=== PATIENT | male | born 1940 | race Caucasian/White ===

== ENCOUNTER 2021-05-13 07:09 | Day surgery (SDC) | payer MEDICARE, BC ==
[2021-05-13] VITALS (13 sets, daily range): BP systolic 125–160; BP diastolic 76–94
[~2021-05-13] VITALS: Ht 182.9 cm; Wt 111.8 kg
[2021-05-13] MEDS ORDERED: nitroGLYCERIN 0.4mg SUBLingual tab SL PRN (07:40)
[2021-05-13] MEDS ORDERED: diphenhydrAMINE 25mg capsule PO PRN (07:40)
[2021-05-13] MEDS ORDERED: LORazepam 0.5 MG tablet PO PRN (07:40)
[2021-05-13] MEDS ORDERED: normal saline 1,000 ML IV SCH (07:40)
[2021-05-13] MEDS ORDERED: BENA40TA73 PO (08:05)
[2021-05-13] MEDS ORDERED: finasteride PO (08:05)
[2021-05-13] MEDS ORDERED: MULT-1085 PO (08:05)
[2021-05-13] MEDS ORDERED: ESCI20TA39 PO (08:05)
[2021-05-13] MEDS ORDERED: ROSU20TA2 PO (08:05)
[2021-05-13 08:16] LABS: BASOPHILS % (AUTO) 0.7 % (0-1); EOSINOPHILS # (AUTO) 0.1 X10'3 (0-0.9); EOSINOPHILS % (AUTO) 1.8 % (0-6); HEMATOCRIT 43.5 % (42.0-52.0); HEMOGLOBIN 14.9 g/dl (14.0-17.9); LYMPHOCYTES # (AUTO) 1.7 X10'3 (1.1-4.8); LYMPHOCYTES % (AUTO) 24.7 % (21-51); MEAN CORPUSCULAR HEMOGLOBIN 31.7 PG (27.0-31.0); MEAN CORPUSCULAR HGB CONC 34.2 g/dL (33.0-36.5); MEAN CORPUSCULAR VOLUME 92.9 FL (78-98); MEAN PLATELET VOLUME 7.5 FL (7.4-10.4); MONOCYTES # (AUTO) 0.8 X10'3 (0-0.9); MONOCYTES % (AUTO) 11.9 % (2-12); NEUTROPHILS # (AUTO) 4.1 X10'3 (1.8-7.7); NEUTROPHILS % (AUTO) 60.9 % (42-75); PLATELET COUNT 213 X10'3 (140-440); RED BLOOD COUNT 4.68 X10'6 (4.70-6.10); RED CELL DISTRIBUTION WIDTH 14.1 % (11.5-14.5); WHITE BLOOD COUNT 6.7 X10'3 (4.5-11.0)
[2021-05-13 08:19] LABS: PARTIAL THROMBOPLASTIN TIME 27 SECONDS (22-32)
[2021-05-13 09:07] LABS: ALBUMIN 3.8 G/DL (3.4-5.0); ANION GAP 12 (8-16); BLOOD UREA NITROGEN 11 MG/DL (7-18); BUN/CREATININE RATIO 10.6 (5.4-32.0); CALCIUM 8.6 MG/DL (8.5-10.1); CHLORIDE 106 MMOL/L (99-107); CREATININE 1.04 MG/DL (0.60-1.10); GLUCOSE 92 MG/DL (70-104); POTASSIUM 3.6 MMOL/L (3.5-5.1); SODIUM 143 MMOL/L (135-145); TOTAL CARBON DIOXIDE 24.9 MMOL/L (24-32); eGFR 69 ML/MIN
[2021-05-13] MEDS ORDERED: iohexol 350MG/ML 100ml bottle IV ONE (10:32)
[2021-05-13] MEDS ORDERED: LIDOcaine 1% (10mg/ml)w/preservative injection 20ml MDV ONE (10:32)
[2021-05-13] MEDS ORDERED: iohexol 350 MG/ML 50ML vial IV ONE ×2 (10:32→11:19)
[2021-05-13] MEDS ORDERED: midazolam 1 mg/ML 2ml injection ONE (10:32)
[2021-05-13] MEDS ORDERED: fentaNYL/PF 50MCG/1 ML 2ML syringe ONE (10:32)
[2021-05-13] MEDS ORDERED: nitroGLYCERIN-Tridil 50MG/D5W 250 ML IV ONE (11:16)
[2021-05-13] MEDS ORDERED: ondansetron/PF 4mg/2ml inj IV PRN (12:20)
[2021-05-13] MEDS ORDERED: HYDROcodone/acetaminophen 10/325mg tab PO PRN (12:25)
[2021-05-13] MEDS ORDERED: OXAZEpam 15mg capsule PO PRN (12:25)
[2021-05-13] MEDS ORDERED: HYDROcodone/acetaminophen 5mg/325mg tablet PO PRN (12:25)
[2021-05-13] MEDS ORDERED: proCHLORperazine 10 MG/2 ml inj IV PRN (12:25)
== END 2021-05-13 18:00 | disposition home or self-care (01) ==
LOC: EDBD 07:09 → SSTAY O 07:09
PROVIDERS: ATTEND Internal Medicine Cardiovascular Disease
DX: R94.39 Abnormal result of other cardiovascular function study (principal); I25.10 Atherosclerotic heart disease of native coronary artery without angina pectoris; I35.0 Nonrheumatic aortic (valve) stenosis; E78.5 Hyperlipidemia, unspecified; M19.90 Unspecified osteoarthritis, unspecified site; G62.9 Polyneuropathy, unspecified; I10 Essential (primary) hypertension; J44.9 Chronic obstructive pulmonary disease, unspecified; Z79.01 Long term (current) use of anticoagulants; Z72.89 Other problems related to lifestyle; Z87.891 Personal history of nicotine dependence; Z79.899 Other long term (current) drug therapy
CPT/HCPCS: 36415; 71046; 80048; 85025; 85610; 85730; 93005; 93458; 93567; 99152; 99153; C1760; C1769; J1644; J2001; J2250; J3010; J7030; Q0163; Q9967; A4620; A4663; A6258; J3490

== ENCOUNTER 2021-07-02 10:40 | Day surgery (SDC) | payer MEDICARE, BC ==
[2021-06-24 15:58] LABS: BASOPHILS % (AUTO) 0.5 % (0-1); EOSINOPHILS # (AUTO) 0.1 X10'3 (0-0.9); EOSINOPHILS % (AUTO) 1.3 % (0-6); LYMPHOCYTES # (AUTO) 2.3 X10'3 (1.1-4.8); MEAN CORPUSCULAR HEMOGLOBIN 31.5 PG (27.0-31.0); MEAN CORPUSCULAR VOLUME 92.6 FL (78-98); MEAN PLATELET VOLUME 7.5 FL (7.4-10.4); MONOCYTES # (AUTO) 0.7 X10'3 (0-0.9); MONOCYTES % (AUTO) 10.7 % (2-12); NEUTROPHILS # (AUTO) 3.8 X10'3 (1.8-7.7); NEUTROPHILS % (AUTO) 54.5 % (42-75); PRE OP HEMATOCRIT 42.1 % (42.0-52.0); PRE OP HEMOGLOBIN 14.3 g/dL (14.0-17.9); PRE OP PLATELET COUNT 214 X10'3 (140-440); RED BLOOD COUNT 4.54 X10'6 (4.70-6.10); RED CELL DISTRIBUTION WIDTH 13.5 % (11.5-14.5)
[2021-06-24 16:05] LABS: PRE OP INR 1.1 INR; PRE OP PROTIME 11.1 SECONDS (9.0-12.0)
[2021-06-24 16:07] LABS: ALBUMIN 3.6 G/DL (3.4-5.0); ALKALINE PHOSPHATASE 65 IU/L (46-116); BLOOD UREA NITROGEN 16 MG/DL (7-18); BUN/CREATININE RATIO 15.5 (5.4-32.0); CALCIUM 8.1 MG/DL (8.5-10.1); CHLORIDE 106 MMOL/L (99-107); CREATININE 1.03 MG/DL (0.60-1.10); PRE OP ALT 22 U/L (30-65); PRE OP ANION GAP 4 (8-16); PRE OP AST 21 U/L (10-37); PRE OP BILIRUB, TOTAL 1.1 MG/DL (0.0-1.0); PRE OP GLUCOSE 96 MG/DL (70-104); PRE OP POTASSIUM 3.8 MMOL/L (3.4-5.1); PRE OP SODIUM 141 MMOL/L (135-145); TOTAL CARBON DIOXIDE 31.3 MMOL/L (24-32); TOTAL PROTEIN 7.1 G/DL (6.4-8.2); eGFR 69 ML/MIN
[~2021-07-02] VITALS: Ht 182.9 cm; Wt 110.0 kg
[2021-07-02] VITALS (19 sets, daily range): BP systolic 93–160; BP diastolic 54–104
[~2021-07-02 10:40] MED LIST: BENA40TA73 PO; ESCI20TA39 PO; FINA5TAB11 PO; ROSU20TA2 PO; cefazolin/dext.iso 2gm/50ml IV ONE; famotidine 20mg tablet PO ONE; tranexamic acid inj. 1,000 MG in 0.7% saline 100 ML PMX IV ONE; vancomycin 1,500 MG in NS 300ml IV soln IV ONE
[2021-07-02] MEDS: ringers solution, lacted 1,000 ML IV SCH ×3 (11:54→19:17)
[2021-07-02] MEDS ORDERED: ketorolac trometh. 30mg/ml inj. ONE (13:17)
[2021-07-02] MEDS ORDERED: vancomycin 1,000mg inj ONE (13:17)
[2021-07-02] MEDS ORDERED: cloNIDine hcl/PF 100mcg/ml inj ONE (13:17)
[2021-07-02] MEDS ORDERED: ROPIVAcaine 0.5% (5mg/ml) 30ml vial ONE (13:18)
[2021-07-02] MEDS ORDERED: tetracaine 1% (10mg/ml) pres. free inj. ONE (13:19)
[2021-07-02] MEDS ORDERED: MIDAZolam 1 MG/ML 5ML VIAL ONE (13:20)
[2021-07-02] MEDS ORDERED: fentaNYL/PF 50MCG/1 ML 2ML syringe ONE (13:20)
[2021-07-02] MEDS ORDERED: morphine 2 MG/ML inj. syringe IV PRN (14:15)
[2021-07-02] MEDS ORDERED: morphine 4 MG/ML inj SYRINge IV PRN (14:15)
[2021-07-02] MEDS ORDERED: meperidine/PF 25mg/ml syringe IV PRN ×3 (14:15)
[2021-07-02] MEDS ORDERED: ringers solution, lacted 1,000 ML IV SCH (14:15)
[2021-07-02] MEDS ORDERED: ondansetron/PF 4mg/2ml inj IV PRN ×2 (14:15→16:00)
[2021-07-02] MEDS ORDERED: proCHLORperazine 10 MG/2 ml inj IV PRN (14:15)
[2021-07-02] MEDS ORDERED: propofol inj 20 ML IV ONE (15:20)
--- NOTE | 2021-07-02 15:46 | NUR ---
Received from OR via ORTHO BED , accompanied by Anesthesiologist ANTONY and report given by Anesthesiolgist. PATIENT WITH 18G PIV IN RIGHT UE. PATIENT WITH LEFT KNEE WRAP WITH JIM VAC. + DP PRESENT AND TOES ALL PWD. VSS. SCDS DONNED BILATERALLY Addendum: 07/02/21 at 1610 by Jason Rodriguez RN, RN Amended: Links added.
[2021-07-02] MEDS ORDERED: bisacodyl 10mg suppository rectal RC PRN (16:00)
[2021-07-02] MEDS ORDERED: acetaminophen 325mg tablet PO PRN (16:00)
[2021-07-02] MEDS: potassium Cl 20mEq in NS 1,000 ML IV SCH (16:00)
[2021-07-02] MEDS ORDERED: diphenhydrAMINE 25mg capsule PO PRN ×2 (16:00)
[2021-07-02] MEDS ORDERED: magnesium hydroxide 30ml (MOM) UD suspension PO PRN (16:00)
[2021-07-02] MEDS ORDERED: HYDROmorphone 1 mg/ml syringe IV PRN (16:00)
[2021-07-02] MEDS ORDERED: HYDROcodone/acetaminophen 10/325mg tab PO PRN (16:00)
--- NOTE | 2021-07-02 16:00 | NUR ---
Pt arrived to surg in an ortho bed, A & O x4 and in no apparent distress. pt had a spinal ans is still numb L5-L6 and left leg. Pt's knee wrap is d & I, minh dressing is in place D & I as well. Pt put in post op vitals, great pedal pulses, <3 capillary refills. pt states he is hungry, ice cubes provide. Pt's IV running per MD's orders LR at 100. pt resting and diet will be advance as directed.
--- NOTE | 2021-07-02 16:46 | NUR ---
Report called to receiving nurse. Transferred via ORTHO BED WITH ONE BAG OF Belongings AND A PAIR OF GLASSES IN A LABELED CONTAINER AT HEAD OF BED. Special Issues communicated to receiving nurse SHARON CARPENTER. SPINAL LEVEL APPROXIMATELY T7-T8. Addendum: 07/02/21 at 1713 by Jason Rodriguez RN, RN Amended: Links added.
--- NOTE | 2021-07-02 16:50 | NUR ---
Patient in room . I have received report from Jason MONTGOMERYform setter supervisor and had the opportunity to ask questions and assume patient care.
[2021-07-02] MEDS: ceFAZolin/D5W- 1GM premix 50 ML IV SCH (19:18)
--- NOTE | 2021-07-02 19:19 | NUR ---
Ancef supposed to run at 1600 patient was not present Pharmacy notified stated OK to give at this time.
[2021-07-02] MEDS ORDERED: vancomycin/NS 1 GM ADD-VANTAGE 250 ML IV SCH (20:00)
[2021-07-02] MEDS: sennosides 8.6mg tablet PO SCH (21:27)
[2021-07-02] MEDS: aspirin 81mg, enteric-coated 1 TAB TABLET.DR PO SCH (21:28)
[2021-07-03] VITALS: BP 111/65
[2021-07-03] MEDS: ceFAZolin/D5W- 1GM premix 50 ML IV SCH (01:29)
[2021-07-03 04:00] VITALS: BP 150/66
[2021-07-03] MEDS: HYDROcodone/acetaminophen 10/325mg tab PO PRN ×4 (05:06→21:30)
[2021-07-03] MEDS: potassium Cl 20mEq in NS 1,000 ML IV SCH ×2 (05:20→18:40)
[2021-07-03 06:19] LABS: BASOPHILS % (AUTO) 0.3 % (0-1); EOSINOPHILS % (AUTO) 0.2 % (0-6); HEMATOCRIT 36.1 % (42.0-52.0); HEMOGLOBIN 12.2 g/dl (14.0-17.9); LYMPHOCYTES % (AUTO) 13.3 % (21-51); MEAN CORPUSCULAR HEMOGLOBIN 31.2 PG (27.0-31.0); MEAN CORPUSCULAR HGB CONC 33.7 g/dL (33.0-36.5); MEAN CORPUSCULAR VOLUME 92.7 FL (78-98); MEAN PLATELET VOLUME 7.5 FL (7.4-10.4); MONOCYTES # (AUTO) 0.9 X10'3 (0-0.9); MONOCYTES % (AUTO) 11.5 % (2-12); NEUTROPHILS # (AUTO) 5.7 X10'3 (1.8-7.7); NEUTROPHILS % (AUTO) 74.7 % (42-75); PLATELET COUNT 154 X10'3 (140-440); RED CELL DISTRIBUTION WIDTH 13.1 % (11.5-14.5); WHITE BLOOD COUNT 7.6 X10'3 (4.5-11.0)
[2021-07-03 06:38] LABS: ALANINE AMINOTRANSFERASE 18 U/L (12-78); ALBUMIN/GLOBULIN RATIO 1.1 (1.1-1.5); ALKALINE PHOSPHATASE 49 IU/L (46-116); ANION GAP 6 (8-16); ASPARTATE AMINO TRANSFERASE 15 U/L (10-37); BILIRUBIN,TOTAL 1.4 MG/DL (0.1-1.0); BLOOD UREA NITROGEN 20 MG/DL (7-18); CALCIUM 8.1 MG/DL (8.5-10.1); CHLORIDE 105 MMOL/L (99-107); CREATININE 1.11 MG/DL (0.60-1.10); GLUCOSE 154 MG/DL (70-104); SODIUM 138 MMOL/L (135-145); TOTAL CARBON DIOXIDE 27.5 MMOL/L (24-32); TOTAL PROTEIN 5.8 G/DL (6.4-8.2); eGFR 64 ML/MIN
[2021-07-03 08:00] VITALS: BP 112/63
[2021-07-03] MEDS: finasteride 5mg tablet PO SCH (08:00)
[2021-07-03] MEDS: aspirin 81mg, enteric-coated 1 TAB TABLET.DR PO SCH ×2 (08:00→20:00)
[2021-07-03] MEDS: atorvastatin 20mg tablet PO SCH (10:28)
[2021-07-03] MEDS: lisinopril 20mg tablet PO SCH (10:31)
[2021-07-03] MEDS: ESCITALOPRAM OXALATE 5 MG TABLET PO SCH (10:33)
[2021-07-03 11:50] VITALS: BP 128/76
--- NOTE | 2021-07-03 16:51 | NUR ---
Joint Surgery Consult: Pt s/p L TKA this admit per EMR. Pt seen by BUCKY for written/verbal high protein ed w/ RD contact information provided. RD encouraged pt to contact dietitian's office if further questions/concerns. Pt reports appetite at baselines and no food preferences at this time. Addendum: 07/03/21 at [address] Amended: Links added.
[2021-07-03 18:00] VITALS: BP 138/70
[2021-07-03] MEDS: sennosides 8.6mg tablet PO SCH (21:28)
[2021-07-04] VITALS: BP 125/68
[2021-07-04 06:29] LABS: BASOPHILS % (AUTO) 0.4 % (0-1); EOSINOPHILS % (AUTO) 0.5 % (0-6); HEMATOCRIT 34.8 % (42.0-52.0); HEMOGLOBIN 11.8 g/dl (14.0-17.9); LYMPHOCYTES # (AUTO) 1.5 X10'3 (1.1-4.8); LYMPHOCYTES % (AUTO) 16.3 % (21-51); MEAN CORPUSCULAR HEMOGLOBIN 31.4 PG (27.0-31.0); MEAN CORPUSCULAR VOLUME 92.3 FL (78-98); MEAN PLATELET VOLUME 8.2 FL (7.4-10.4); MONOCYTES # (AUTO) 1.5 X10'3 (0-0.9); MONOCYTES % (AUTO) 16.3 % (2-12); NEUTROPHILS # (AUTO) 6.1 X10'3 (1.8-7.7); NEUTROPHILS % (AUTO) 66.5 % (42-75); PLATELET COUNT 161 X10'3 (140-440); RED BLOOD COUNT 3.77 X10'6 (4.70-6.10); RED CELL DISTRIBUTION WIDTH 13.2 % (11.5-14.5); WHITE BLOOD COUNT 9.2 X10'3 (4.5-11.0)
[2021-07-04 06:39] LABS: ALANINE AMINOTRANSFERASE 17 U/L (12-78); ALBUMIN/GLOBULIN RATIO 0.9 (1.1-1.5); ALKALINE PHOSPHATASE 54 IU/L (46-116); ANION GAP 7 (8-16); ASPARTATE AMINO TRANSFERASE 15 U/L (10-37); BILIRUBIN,TOTAL 1.3 MG/DL (0.1-1.0); BLOOD UREA NITROGEN 19 MG/DL (7-18); BUN/CREATININE RATIO 17.9 (5.4-32.0); CALCIUM 8.8 MG/DL (8.5-10.1); CHLORIDE 104 MMOL/L (99-107); CREATININE 1.06 MG/DL (0.60-1.10); GLUCOSE 120 MG/DL (70-104); POTASSIUM 4.1 MMOL/L (3.5-5.1); SODIUM 140 MMOL/L (135-145); TOTAL PROTEIN 6.5 G/DL (6.4-8.2); eGFR 67 ML/MIN
--- NOTE | 2021-07-04 07:10 | NUR ---
Charge nurse receiving patient on day shift. Charge nurse declined report directly, received report from [facility] shift lead charge nurse
[2021-07-04] MEDS: potassium Cl 20mEq in NS 1,000 ML IV SCH (08:00)
[2021-07-04 08:03] VITALS: BP 133/80
[2021-07-04] MEDS: HYDROcodone/acetaminophen 10/325mg tab PO PRN (08:51)
[2021-07-04] MEDS: ESCITALOPRAM OXALATE 5 MG TABLET PO SCH (08:51)
[2021-07-04] MEDS: lisinopril 20mg tablet PO SCH (08:52)
[2021-07-04] MEDS: finasteride 5mg tablet PO SCH (08:52)
[2021-07-04] MEDS: aspirin 81mg, enteric-coated 1 TAB TABLET.DR PO SCH ×2 (08:53→19:08)
[2021-07-04] MEDS: atorvastatin 20mg tablet PO SCH (08:53)
[2021-07-04 11:35] VITALS: BP 110/65
--- NOTE | 2021-07-04 14:37 | NUR ---
Patient to discharge home tomorrow per Dr. Morillo.
--- NOTE | 2021-07-04 15:26 | NUR ---
Updated Chikis by phone on patients statues. Chikis aware patient will be able to discharge home tomorrow per Dr. Morillo if all is well tonight.
--- NOTE | 2021-07-04 17:20 | NUR ---
Patient pulled out IV and refuses another one, states "nothing is going in it. "
[2021-07-04 18:00] VITALS: BP 135/67
--- NOTE | 2021-07-04 18:09 | NUR ---
Problems reprioritized. Patient report given, questions answered & plan of care reviewed with Kianna MONTGOMERY
[2021-07-04] MEDS: sennosides 8.6mg tablet PO SCH (21:16)
[2021-07-05] VITALS: BP 141/72
[2021-07-05 07:00] VITALS: BP 130/68
[2021-07-05 07:29] VITALS: BP_SYST 130
[2021-07-05] MEDS: atorvastatin 20mg tablet PO SCH (07:29)
[2021-07-05] MEDS: lisinopril 20mg tablet PO SCH (07:29)
[2021-07-05] MEDS: finasteride 5mg tablet PO SCH (07:29)
[2021-07-05] MEDS: ESCITALOPRAM OXALATE 5 MG TABLET PO SCH (07:29)
[2021-07-05] MEDS: HYDROcodone/acetaminophen 10/325mg tab PO PRN (07:30)
[2021-07-05] MEDS: aspirin 81mg, enteric-coated 1 TAB TABLET.DR PO SCH (07:30)
--- NOTE | 2021-07-05 11:41 | NUR ---
no iv site present, d/c instructions reviewed with pt and uli Spann. all belongings packed by granddaughter. [id number] pt rolled to lobby by BALTA
--- NOTE | 2021-07-05 12:55 | NUR ---
pt granddaughter called to ask about pain meds. Maria Ines stated that she misunderstood when asked if pt already had pain meds. she stated that she was planning to reach out to pts PCP and request these pain meds to be sent to a pharmacy closer to where they are currently. rn agreed to answer an questions that pts PCP may have in attempts to help pt obtain pain meds from PCP.
== END 2021-07-05 11:30 | disposition home or self-care (01) ==
LOC: PAS 10:40 → SUR 3N 16:01 → PAS 07-05 11:30
PROVIDERS: ATTEND Orthopaedic Surgery
DX: M17.12 Unilateral primary osteoarthritis, left knee (principal); I10 Essential (primary) hypertension; F32.9 Major depressive disorder, single episode, unspecified; N40.0 Benign prostatic hyperplasia without lower urinary tract symptoms; Z85.51 Personal history of malignant neoplasm of bladder; Z98.890 Other specified postprocedural states; Z98.49 Cataract extraction status, unspecified eye; Z87.891 Personal history of nicotine dependence; Z79.899 Other long term (current) drug therapy; Z20.822 Contact with and (suspected) exposure to COVID-19; Z79.01 Long term (current) use of anticoagulants
CPT/HCPCS: 27447; 36415; 80053; 82948; 85025; 85610; 85730; 86885; 86900; 86901; 86920; 87081; 97110; 97116; 97530; C1713; C1758; C1776; J0690; J0735; J1170; J1885; J2250; J2704; J2795; J3010; J3370; J3490; J7030; J7040; J7120; U0003; U0005; Z7506; Z7508; Z7512; A6455; A7000; A9272; G0378